=== PATIENT | female | born 1960 | race Caucasian/White ===

== ENCOUNTER → 2016-05-03 | Outpatient (CLI) | payer BC | LOC: MC.RAD 13:35 | DX: Z12.31 Encounter for screening mammogram for malignant neoplasm of breast (principal); Z80.3 Family history of malignant neoplasm of breast ==

== ENCOUNTER → 2017-05-07 | Outpatient (CLI) | payer BC | LOC: MC.RAD 13:55 | DX: Z12.31 Encounter for screening mammogram for malignant neoplasm of breast (principal) ==

== ENCOUNTER 2018-02-28 06:33 | Day surgery (SDC) | payer BC ==
[~2018-02-28] VITALS: Ht 177.8 cm; Wt 115.0 kg
[2018-02-28 06:55] VITALS: BP 133/66; PULSE 70; TEMP 96.9
[2018-02-28] MEDS ORDERED: AMBIEN 5MG TABLE5 MG PO (07:00)
[2018-02-28] MEDS ORDERED: TOPAMAX50 MG PO (07:00)
[2018-02-28] MEDS ORDERED: MULTIPLE VITAMI1 CAP PO (07:01)
[2018-02-28] MEDS ORDERED: [UNRECOGNIZED DRUG - OTHER] PO (07:01)
[2018-02-28 07:57] VITALS: BP 112/83; PULSE 72; TEMP 97
[2018-02-28 08:15] VITALS: BP 123/78; PULSE 69
[2018-02-28 08:30] VITALS: BP 107/67; PULSE 65
== END 2018-02-28 09:00 | disposition home or self-care (01) ==
LOC: SDCO 06:33
DX: Z12.11 Encounter for screening for malignant neoplasm of colon (principal); D12.5 Benign neoplasm of sigmoid colon; D50.9 Iron deficiency anemia, unspecified; Z90.49 Acquired absence of other specified parts of digestive tract; Z90.710 Acquired absence of both cervix and uterus; Z86.010 Personal history of colon polyps; Z88.0 Allergy status to penicillin
CPT/HCPCS: J2250; J3010; J7030

== ENCOUNTER → 2018-05-21 | Outpatient (CLI) | payer BC ==
[~2018-05-21] MED LIST: AMBIEN 5MG TABLE5 MG PO; MULTIPLE VITAMI1 CAP PO; TOPAMAX50 MG PO; [UNRECOGNIZED DRUG - OTHER] PO
== END ==
LOC: MC.RAD 13:06
DX: Z12.31 Encounter for screening mammogram for malignant neoplasm of breast (principal)